=== PATIENT | female | born 1940 | race Caucasian/White ===

== ENCOUNTER 2024-08-19 07:17 | Day surgery (SDC) | payer MEDICARE, SELFPAY ==
[2024-08-17 10:13] VITALS: BMI 29.2
--- NOTE | 2024-08-19 | ECG_ITS ---
Test Reason : chg of rythm Blood Pressure : / mmHG Vent. Rate : 069 BPM Atrial Rate : 069 BPM P-R Int : 120 ms QRS Dur : 104 ms QT Int : 452 ms P-R-T Axes : 110 028 093 degrees QTc Int : 484 ms Sinus rhythm with Premature supraventricular complexes cannot exclude old Lateral infarct , age undetermined Abnormal ECG No previous ECGs available Referred By: Ashley Alves Electronically Signed By:DAVID LUCERO
--- NOTE | 2024-08-19 08:11 | HO.ANESPROP2 ---
HPI - Anesthesia Eval Consult details Narrative: 83 yo female patient for Colonoscopy PMF Active Problems Active Problems: Asthma- stable Past Medical History Medical History History of immunotherapy (~04/2024) Walker as ambulation aid Wears dentures GERD (gastroesophageal reflux disease) Left ear pain Hx of headache Seasonal allergies HLD (hyperlipidemia) Renal cell carcinoma Lung cancer HTN (hypertension) Diabetes Asthma Family History Family History Daughter Slow to wake up after anesthesia Family history of problems with anesthesia: No Surgical History Surgical History History of bilateral knee replacement History of lobectomy of lung Status post cryoablation (~2017) Hx of tonsillectomy Hx of cholecystectomy Hx of colonoscopy (~2018) History of Problems with Anesthesia: No Social History Social History Household Members Other:: daughter Housing Other:: mobile home Are you a primary hospice care consultant to a significant other at home: No Do you presently have visiting nurse or other home services: No Patient Tobacco Use Status: Former Tobacco user Tobacco use type: Cigarette Smoked in Last 30 Days: No Use of substances other than those prescribed or required for medical reasons: No Have you been hit, kicked, punched, or otherwise hurt by someone within the past year? If so, by whom?: No Are you DNR?: No Advance Directives: No (will bring dos) Advance Directives Information Provided: Yes Advance Directives on File: No Recently lost weight without trying: Yes How much weight loss: 2-13 pounds Eating poorly because of decreased appetite: Yes Nutrition screen score: 4 Nutrition Risks: Surgical patient >75years Meds Allergies Allergy/AdvReac Type Severity Reaction Status Date / Time ibuprofen [From Motrin] Allergy Severe Gastrointestinal Verified 08/19/24 07:55 Upset, rash Penicillins Allergy Severe Anaphylaxis Verified 08/19/24 07:55 codeine Allergy Intermediate Rash Verified 08/19/24 07:55 demeclocycline Allergy Unknown Unknown Verified 08/19/24 07:55 [From Declomycin] Sulfa (Sulfonamide Allergy Unknown Unknown Verified 08/19/24 07:55 Antibiotics) Active Medications: Current Medications Albuterol Sulfate (Albuterol Sulfate (0.083%) 2.5 Mg/3 Ml Vial.Neb) 2.5 mg INHALE ONCE PRN PRN Reason: Shortness of Breath/Wheezing Lactated Ringer's (Lr) 1,000 mls @ 100 mls/hr IVCONT .Q10H AGUS Home Medications ?Medication ?Instructions ?Recorded ?Confirmed ?Last Taken ?Type albuterol sulfate 90 mcg/actuation 2 puff inhalation QID PRN 08/17/24 08/17/24 Unknown History aerosol inhaler (Proventil HFA) Shortness Of Breath Or Wheezing ascorbic acid (vitamin C) 500 mg 500 mg PO BID 08/17/24 08/17/24 Unknown History tablet (Vitamin C) aspirin 81 mg chewable tablet 81 mg PO DAILY 08/17/24 08/17/24 08/12/24 History atorvastatin 10 mg tablet 10 mg PO BEDTIME 08/17/24 08/17/24 Unknown History calcium carbonate 500 mg PO DAILY 08/17/24 08/17/24 Unknown History cholecalciferol (vitamin D3) 50 50 mcg PO DAILY 08/17/24 08/17/24 Unknown History mcg (2,000 unit) tablet (Vitamin D3) clindamycin HCl 300 mg capsule 300 mg PO 08/17/24 08/19/24 06:00 History gabapentin 800 mg tablet 800 mg PO BEDTIME 08/17/24 08/17/24 Unknown History meloxicam 15 mg tablet 15 mg PO .DAILY@1700 08/17/24 08/17/24 08/12/24 History omeprazole 20 mg capsule,delayed 20 mg PO .DAILY@1700 08/17/24 08/17/24 Unknown History release vit C 250 mg-vit E 90 mg-zinc 40 1 tab PO BID 08/17/24 08/17/24 Unknown History mg-copper 1 [id number] capsule (PreserVision AREDS-2) Exam Height,Weight and Vital Signs: Height 4 ft 10 in Weight 63.276 kg Airway Mallampati Class: II TM Dist: >3cm Neck ROM: Full Denture: Upper Loose/Missing/Broken Teeth: Yes (Full denture top. Only few teeth bottom. Denies broken or loose) Heart: RRR+ occasional extra beats Lungs: CTAB Assessment and Plan Assessment Anesthesia Assessment: Anesthesia Plan Discussed and Chart Reviewed Final Anesthetic Review Family History of Problems with Anesthesia: No History of Problems with Anesthesia: No NPO: Yes ASA Class: I Final Preanesthetic Review: No Changes in Pt Med Stat, Meds/Allgs Chart Reviewed, Consent Obtained/Reviewed and Anes Risks/Benef Reviewed Patient Risk: Low Procedure Risk: Low Assessment/Block/Sedation in SS: Assess/Block/Sedation-SS Anesthetic Plan Anesthetic Plan: TIVA Disposition: Standard PACU
[2024-08-19 08:33] VITALS: BP 136/59; PULSE 69; RESP 15; TEMP 36.7; O2SAT 96
[2024-08-19] MEDS: Lactated Ringers 1,000 ML 100 ML IVCONT (08:36)
--- NOTE | 2024-08-19 08:53 | MHC.SHP ---
Pre-Procedural Eval Section A - 24 Hr Update-Section A only Date of Service: 08/19/24 Section B - Complete if H&P > 30 days Chief Complaint: screening Details of Present Illness: see H&P no changes Relevant Family History (Specify if Yes): No Relevant Social History: None Present Medications: see Short Stay Collaborative assessment Medical History: No relevant PMH History of Previous Operations: No relevant previous surgery Allergies: Allergies Allergy/AdvReac Type Severity Reaction Status Date / Time ibuprofen [From Motrin] Allergy Severe Gastrointestinal Verified 08/19/24 07:55 Upset, rash Penicillins Allergy Severe Anaphylaxis Verified 08/19/24 07:55 codeine Allergy Intermediate Rash Verified 08/19/24 07:55 demeclocycline Allergy Unknown Unknown Verified 08/19/24 07:55 [From Declomycin] Sulfa (Sulfonamide Allergy Unknown Unknown Verified 08/19/24 07:55 Antibiotics) Review of Systems Sugical H&P ROS: Negative: Constitution, Cardiovascular, Respiratory, Neurological, Psychiatric, Hem-Onc, Allergic/Immunologic, Gastrointestinal, Genitourinary, Musculoskeletal, Integumentary, Endocrine and Eyes/Ears/Nose/Throat Exam Surgical H&P Exam: Normal: HEENT, Normal: Heart, Normal: Lungs, Normal: Extremities, Normal: Abdomen, Normal: Skin and Normal: Neurological Plan Diagnosis/Plan: Unchanged I have reviewed the history and physical and performed a pertinent physical examination on my patient. No changes have occurred unless specified. Time Spent With Patient Time: Total time managing care of this patient today ____ minutes.
--- NOTE | 2024-08-19 08:58 | PC.NURSE ---
0830 questionable rythym, ekg ordered by anesthesia and checked. ok'd to proceed at 0845
[2024-08-19 09:28] VITALS: BP 100/39; PULSE 67; RESP 20; TEMP 36.3; O2SAT 96
[2024-08-19 09:43] VITALS: BP 116/41; PULSE 65; RESP 16; TEMP 36.3; O2SAT 97
--- NOTE | 2024-08-19 10:25 | OP_ITS ---
DATE OF SERVICE: 08/19/2024 SURGEON: Nicola Benavides MD INDICATIONS: Colon cancer screening. PREOPERATIVE DIAGNOSIS: POSTOPERATIVE DIAGNOSIS: PROCEDURE PERFORMED: Colonoscopy to the terminal ileum with biopsy. ESTIMATED BLOOD LOSS: COMPLICATIONS: ANESTHESIA: Monitored anesthesia care. ASSISTANTS: SPECIMENS: DESCRIPTION OF PROCEDURE: A history and physical were performed. The risks and benefits of the procedure were explained to the patient, and informed consent was obtained. The patient was placed in the left lateral decubitus position. A digital rectal exam was performed and was found to be normal. The Olympus pediatric video colonoscope was introduced into the rectum and advanced to the cecum. The cecum was identified by transillumination, palpation, identification of the ileocecal valve. Examination was performed, and the scope was removed. She tolerated the procedure well and was taken to recovery in stable condition. FINDINGS: The terminal ileum was normal. The visualized colonic mucosa was within normal limits without evidence of masses or ulcers. A single polyp measuring less than 5 mm identified at 45 cm, removed with biopsy forceps. No other polyps were identified. Retroflexed examination showed moderate-sized internal hemorrhoids. There was mild sigmoid diverticulosis. IMPRESSION: Colon polyp. RECOMMENDATION: Follow up the biopsy results. MD KEYSHA Gan/BERNICE / [id number]
== END 2024-08-19 10:25 | disposition home or self-care (01) ==
PROVIDERS: PCP Pediatrics; Visit Provider Internal Medicine Gastroenterology
PROC: 0DJD8ZZ Inspection of Lower Intestinal Tract, Via Natural or Artificial Opening Endoscopic (ICD-10-PCS; CPT 45378; principal; 2024-08-19 09:10)
DX: Z12.11 Encounter for screening for malignant neoplasm of colon (principal); D12.5 Benign neoplasm of sigmoid colon; K64.8 Other hemorrhoids; K57.30 Diverticulosis of large intestine without perforation or abscess without bleeding; E11.9 Type 2 diabetes mellitus without complications; I10 Essential (primary) hypertension; J45.909 Unspecified asthma, uncomplicated; Z87.891 Personal history of nicotine dependence; Z86.0101 Personal history of adenomatous and serrated colon polyps; Z79.2 Long term (current) use of antibiotics; Z79.899 Other long term (current) drug therapy
CPT/HCPCS: 45380; 88305; 93005; J2003; J2704

== ENCOUNTER → 2024-08-19 08:19 | Outpatient (BNV) | payer MEDICARE, SELFPAY | PROVIDERS: PCP Pediatrics; Visit Provider Internal Medicine | DX: I49.1 Atrial premature depolarization (principal); R94.31 Abnormal electrocardiogram [ECG] [EKG] | CPT/HCPCS: 93010 ==